=== PATIENT | male | born 1950 | race Caucasian/White ===

== ENCOUNTER 2021-10-02 14:13 | Emergency (ER) | payer MEDICARE, SELFPAY ==
--- NOTE | ~2021-10-02 | XR_ITS ---
XR wrist LT min 3V 10/02/2021 14:43 Indication: Left wrist pain Procedure: 4 views left wrist Comparison: No prior studies for comparison. Findings: No fracture, subluxation or dislocation. There are mild degenerative changes of the triscap he and first carpometacarpal joint. Osteopenia. No focal soft tissue abnormality. Impression: 1: No acute bone or joint abnormality. Reviewed, dictated and finalized at location A. UNTING ANALYST Impression: 1: No acute bone or joint abnormality.
[2021-10-02 14:32] VITALS: BP 128/82; PULSE 88; RESP 18; TEMP 36.6; O2SAT 99
--- NOTE | 2021-10-02 15:13 | ED.UPPEXIN ---
HPI - Extremity Injury (Upper) General Chief Complaint: Extremity Injury, Upper Stated Complaint: Lt Wrist Pain due to Fall Time Seen by Provider: 10/02/21 15:00 Source: patient, family, RN notes reviewed and old records reviewed Mode of arrival: ambulatory Limitations: no limitations History of Present Illness HPI narrative: 71 year old male who presents to [facility] care with complaints of pain to his left wrist after fall which occurred when he was working in the yard on when he slid down hill and tried to break his fall with his left wrist. Patient states that it was feeling better then Sunday evening the pain seems to be worse and is more swollen. Patient reports that he has taken Tylenol and has been wearing supportive brace to his left wrist area. Patient is left hand dominant. MD complaint: injury to: left and wrist Place: home Related Data Allergies Allergy/AdvReac Type Severity Reaction Status Date / Time No Known Allergies Allergy Verified 10/02/21 14:34 Review of Systems Review of Systems: CONSTITUTIONAL: Denies fever, chills, or sweats. EYES: Denies visual changes, redness, or discharge. ENT: Denies rhinorrhea, congestion, sore throat, or otalgia. CARDIOVASCULAR: Denies chest pain, palpitations, or edema. RESPIRATORY: Denies cough or dyspnea. GASTROINTESTINAL: Denies abdominal pain, nausea, vomiting, or diarrhea. GENITOURINARY: Denies dysuria or hematuria. SKIN: Denies rash or itching. MUSCULOSKELETAL: Denies back pain,pain to his left wrist joint, or myalgia. NEUROLOGIC: Denies headache, numbness, or weakness. PSYCHIATRIC: Denies anxiety or depression. All systems reviewed & are unremarkable except as noted in HPI and below PMFSH Past Medical History Medical History (Updated 10/05/21 @ 09:15 by Hue Mast NP) Diabetes Elevated cholesterol History of sinus problem Hypertension Hypothyroidism ROXANNE (obstructive sleep apnea) Surgical History Surgical History (Updated 10/05/21 @ 09:14 by Hue Mast NP) H/O inguinal hernia repair Family History Family History (Updated 10/05/21 @ 09:16 by Hue Mast NP) Other Family history non-contributory Social History Social History (Updated 10/05/21 @ 09:17 by Hue Mast NP) Smoking status: Never smoker Alcohol intake: unknown Substance use: never Living arrangements: with family Gender identity (if verbalized by the patient): Male Comments At time of signature, agree with nursing past medical, surgical, social and family history. There is no relevant family history pertinent to the presenting complaint Exam Narrative: GENERAL: Well-appearing, well-nourished, and in no acute distress. HEAD: Normocephalic, atraumatic. EYES: PERRLA and EOMI. ENT: Nares clear, no rhinorrhea or epistaxis. Mucous membranes moist.TM's normal with good light reflex, throat pink with no lesions or exudates no tonsil enlargement. NECK: Supple.no lymphadenopathy CHEST: Clear to auscultation. No respiratory distress.SAO2 99% on room air HEART: Regular rate and rhythm. No murmur heard. Normal peripheral pulses. ABDOMEN: Soft, nontender, nondistended, normal active bowel sounds. EXTREMITIES: Normal range of motion.no edema with exception of left wrist which has painful ROM Mild edema to radial aspect of left wrist, strong left radial pulse present with nail beds having brisk capillary refill. SKIN: Warm, dry, no rash. NEURO: No focal deficits. Alert and oriented x3. Course Vital Signs Vital signs: Vital Signs Temperature 36.6 C 10/02/21 14:32 Pulse Rate 88 10/02/21 14:32 Respiratory Rate 18 10/02/21 14:32 Blood Pressure 128/82 10/02/21 14:32 Pulse Oximetry 99 10/02/21 14:32 Temperature 36.6 C 10/02/21 14:32 Pulse Rate 88 10/02/21 14:32 Respiratory Rate 18 10/02/21 14:32 Blood Pressure 128/82 10/02/21 14:32 Pulse Oximetry 99 10/02/21 14:32 MDM - Extremity Injury (Upper) Differential Diagn
== END 2021-10-02 15:34 | disposition home or self-care (01) ==
PROVIDERS: Emergency Provider Registered Nurse; PCP Family Medicine
DX: S66.912A Strain of unspecified muscle, fascia and tendon at wrist and hand level, left hand, initial encounter (principal); S63.502A Unspecified sprain of left wrist, initial encounter; W17.81XA Fall down embankment (hill), initial encounter; E11.9 Type 2 diabetes mellitus without complications; E78.00 Pure hypercholesterolemia, unspecified; I10 Essential (primary) hypertension; E03.9 Hypothyroidism, unspecified; G47.33 Obstructive sleep apnea (adult) (pediatric)
CPT/HCPCS: 73110; 99213; G0463